=== PATIENT | male | born 1940 | race Caucasian/White ===

== ENCOUNTER 2017-07-26 05:28 | Day surgery (SDC) | payer MEDICARE, MEDICAID ==
[2017-07-23 14:34] LABS: MICROSCOPIC NOT IND
[2017-07-23 14:44] LABS: ALANINE AMINOTRANSFERASE 33 U/L (12-78); ALBUMIN 3.9 g/dL (3.4-5.0); ANION GAP 8 mmol/L (5-15); CALCIUM 8.6 mg/dL (8.5-10.1); CHLORIDE 106 mmol/L (98-107); CREATININE 0.96 mg/dL (0.7-1.3)
[2017-07-23 14:47] LABS: ALKALINE PHOSPHATASE 68 U/L (45-117); BILIRUBIN,TOTAL 0.7 mg/dL (0.2-1.0); TOTAL PROTEIN 7.8 g/dL (6.4-8.2)
[~2017-07-26] VITALS: Ht 167.6 cm; Wt 82.9 kg
[~2017-07-26 05:28] MED LIST: CYAN1TAB29 PO; GABA300C10 PO; OMEP-110 PO; TAMS-11 PO
[2017-07-26 06:02] VITALS: BP 189/85
[2017-07-26] MEDS ORDERED: LACTATED RINGERS 1,000 ML IV SCH (06:02)
[2017-07-26] MEDS ORDERED: FENTANYL PF 100 MCG/2ML ONE (07:11)
[2017-07-26] MEDS ORDERED: MIDAZOLAM 1 MG/ML, 2ML ONE (07:11)
[2017-07-26] MEDS ORDERED: ROCURONIUM 10 MG/ML,10ML ONE (07:13)
[2017-07-26] MEDS ORDERED: CEFAZOLIN 1,000 MG ONE (07:20)
[2017-07-26] MEDS ORDERED: PROPOFOL 10 MG/ML, 20ML ONE (07:20)
[2017-07-26] MEDS ORDERED: ONDANSETRON 2MG/ML, 2ML ONE (07:20)
[2017-07-26] MEDS ORDERED: DEXAMETHASONE 4 MG/ML, 1ML ONE (07:20)
[2017-07-26] MEDS ORDERED: PROMETHAZINE 25 MG/ML, 1ML IV PRN (07:30)
[2017-07-26] MEDS ORDERED: MIDAZOLAM 1 MG/ML, 2ML IV PRN (07:30)
[2017-07-26] MEDS ORDERED: NEOSTIGMINE 1 MG/ML, 10ML ONE (07:30)
[2017-07-26] MEDS ORDERED: FENTANYL PF 100 MCG/2ML IV PRN (07:30)
[2017-07-26] MEDS ORDERED: MITOMYCIN 40 MG, WATER FOR INJECTION,STERILE 40 ML in SYRINGE 1 EA INTVESIC ONE (07:30)
[2017-07-26] MEDS ORDERED: ONDANSETRON 2MG/ML, 2ML IVPush PRN (07:30)
[2017-07-26] MEDS ORDERED: OXYcodone 5 MG/5 ML ORAL.SOL UDC PO PRN (07:30)
[2017-07-26] MEDS ORDERED: DIAZEPAM 5 MG/ML, 2ML IVPush PRN (07:30)
[2017-07-26] MEDS ORDERED: hydrALAzine 20 MG/ML, 1ML IV PRN (07:30)
[2017-07-26] MEDS ORDERED: HYDROmorphone 1 MG/ML, 1ML IV PRN (07:30)
[2017-07-26] MEDS ORDERED: ACETAMINOPHEN 325 MG TABLET PO PRN (07:30)
[2017-07-26] MEDS ORDERED: LABETALOL 5MG/ML, 20ML IV PRN (07:30)
[2017-07-26] MEDS ORDERED: GLYCOPYRROLATE 0.2MG/1ML, 5ML ONE (07:30)
[2017-07-26] MEDS ORDERED: ALBUTEROL/IPRATROPIUM 2.5MG/0.5MG, 3 ML NPPB PRN (07:30)
[2017-07-26] MEDS ORDERED: EPHEDRINE 50 MG/ML, 1ML ONE (07:41)
== END 2017-07-26 10:15 ==
LOC: OUT 05:28
PROVIDERS: ATTEND Student in an Organized Health Care Education/Training Program
DX: C67.9 Malignant neoplasm of bladder, unspecified (principal); K21.9 Gastro-esophageal reflux disease without esophagitis
CPT/HCPCS: 36415; 52234; 80053; 81003; 87086; 87147; 88307; 93005; J0690; J1100; J2250; J2405; J2704; J2710; J3010; J7120; J9280; J3490